=== PATIENT | female | born 1970 | race African-American/Black ===

== ENCOUNTER 2016-07-27 06:35 | Inpatient (IN) ==
[2016-07-26 17:03] LABS: Basophils % 0.3 % (0.0-0.8); Eosinophils # 0.2 10*3/uL (0.0-0.87); Eosinophils % 2.9 % (0.00-10.9); Hematocrit 39.5 VOL% (35.7-47.0); Immature Granulocytes % 0.3 %; Immature Granulocytes Absolute 0.02 #; Lymphocytes # 2.1 10*3/uL (1.4-4.0); Mean Corpuscular HGB Conc 32.9 GM/DL (32-36); Mean Corpuscular Hemoglobin 28 PG (27-34); Mean Corpuscular Volume 85.9 FL (87-102); Mean Platelet Volume 10.5 FL (9.6-12.0); Monocytes # 0.5 10*3/uL (0.11-0.8); Monocytes % 6.8 % (1.7-12.7); Neutrophils # 4.8 10*3/uL (1.4-7.4); Neutrophils % 62.7 % (38.7-73.9); Platelet Count 341 T/CUMM (130-400); White Blood Count 7.7 T/CUMM (4-12)
[2016-07-26 17:30] LABS: Calcium 9.3 MG/DL (8.5-10.1); Potassium 4.2 MMOL/L (3.5-5.1)
[2016-07-27] MEDS ORDERED: DIAZEPAM 5 MG TABLET PO ONE (07:04)
[2016-07-27] MEDS ORDERED: FAMOTIDINE 20 MG TABLET PO ONE (07:04)
[2016-07-27] MEDS ORDERED: ceFAZolin 1,000 MG VIAL ONE (07:10)
[2016-07-27] MEDS ORDERED: DIAZEPAM 5 MG TABLET ONE (07:10)
[2016-07-27] MEDS ORDERED: FAMOTIDINE 20 MG TABLET ONE (07:10)
[2016-07-27] MEDS ORDERED: SODIUM CHLORIDE 0.9% 100 ML IV ONE (07:11)
[2016-07-27] MEDS ORDERED: LACTATED RINGERS 1,000 ML IV SCH (07:30)
--- NOTE | 2016-07-27 08:06 | History and Physical Update ---
History and Physical Update - History and Physical H&P was reviewed, the patient examined and there: are no changes in the patients condition since last H&P was completed.
[2016-07-27] MEDS ORDERED: BUPIVACAINE 0.5% 50 ML VIAL ONE (08:16)
[2016-07-27] MEDS ORDERED: HEPARIN 5,000 UNIT/1 ML VIAL ONE (08:16)
[2016-07-27] MEDS ORDERED: VANCOMYCIN 500 MG VIAL ONE (08:16)
[2016-07-27] MEDS ORDERED: THROMBIN TOPICAL (RECOMBINANT) 5,000 UNIT VIAL TOP ONE (08:16)
[2016-07-27] MEDS ORDERED: GLYCOPYRROLATE 0.4 MG/2 ML VIAL ONE (09:05)
[2016-07-27] MEDS ORDERED: NEOSTIGMINE 10 MG/10 ML VIAL ONE (09:05)
[2016-07-27] MEDS ORDERED: LIDOCAINE 2% 5 ML VIAL ONE (09:05)
[2016-07-27] MEDS ORDERED: HEPARIN 1,000 UNIT/1 ML VIAL ONE (09:05)
[2016-07-27] MEDS ORDERED: PROPOFOL 200 MG/20 ML VIAL IV ONE (09:05)
[2016-07-27] MEDS ORDERED: KETOROLAC 30 MG/1 ML VIAL ONE (09:05)
[2016-07-27] MEDS ORDERED: ROCURONIUM 100 MG/10 ML VIAL IV ONE (09:05)
[2016-07-27] MEDS ORDERED: ONDANSETRON 4 MG/2 ML VIAL ONE (09:05)
[2016-07-27] MEDS ORDERED: ETOMIDATE 20 MG/10 ML VIAL IV ONE (09:05)
[2016-07-27] MEDS ORDERED: TISSUE ADHESIVE 1 EACH APPLICATOR TOP ONE (10:48)
[2016-07-27] MEDS ORDERED: HYDROmorphone 2 MG/1 ML VIAL IV PRN (10:55)
[2016-07-27] MEDS ORDERED: ONDANSETRON 4 MG/2 ML VIAL IV PRN (10:55)
--- NOTE | 2016-07-27 11:05 | Operative Note ---
Date of procedure: 07/27/16 Procedure: Dr. Loco operative report Adela Rodriguez. Surgeon: Mare Anesthesia: Bon of general endotracheal. Preoperative diagnosis occlusion right common femoral artery. Postoperative diagnosis: Occlusion right common femoral artery due to intimal flap. Procedure: Exploration and repair of right common femoral artery with thrombectomy of the right iliac artery.bovine pericardial patch graft. Indications for the procedure: Ms. Rodriguez a 46-year-old woman has an acute occlusion of her right common femoral artery subsequent to cardiac catheterization. I have offered and recommended exploration and repair of explained the alternatives risks and complications which she understands and accepts Description of the procedure: After the induction of general endotracheal anesthesia the patient's lower abdomen groin and thigh are prepped with ChloraPrep and Ioban and draped in the usual fashion I made an incision over the femoral canal and just above the inguinal ligament carried this down into the common into the femoral canal. I dissected the common femoral and external iliac artery free noting the closure device on the anterior surface of the artery. Patient received 5000 units of heparin Vesseloops were used to control the external iliac and the common femoral arteries above its bifurcation. I opened the artery noting that there was a significant dissection of the intima in the common femoral artery causing occlusion in the iliac artery was completely occluded due to thrombus. I trimmed the dissected intima down to an area above the bifurcation of the femoral artery I used 7-0 Prolene to tack the intimal flap down securely under loupe magnification. I then used a 5 Lars catheter and did thrombectomy proximally finding no feeling of disease within the artery and an excellent inflow was also excellent inflow from the backflow from the femoral artery. I used a bovine pericardial patch and 6 5-0 Prolene suture to close the arteriotomy. Flow was restored and Doppler signal was quite good hemostasis was obtained with partial reversal of the heparin was 25 mg of protamine. I then rechecked and second showed continued flow and pulse in the femoral artery distal to the repair. Incision was irrigated Tisseel was used to secure the area around the artery and the incision was closed with 403 0 Monocryl in the subcu 4-0 Monocryl subcuticular and glue on the skin blood loss estimated at 150 cc. Surgeon / Physician: Jatinder Loco Results - Labs CBC & BMP: 07/26/16 16:52 03/27/17 16:52 Discharge Plan - Discharge Medications No Action Aspirin EC Tab 325 mg PO DAILY Amiloride/Hydrochlorothiazide [Amiloride HCl-Hctz 5-50 mg Tab] 1 tablet PO DAILY Spironolactone 25 mg PO DAILY Nitroglycerin [Nitroglycerin SL Tab] 0.4 mg PO DIRECTED DULoxetine [Cymbalta] 30 mg PO DAILY cloNIDine TAB [Catapres Tab] 0.2 mg PO TID Amlodipine/Valsartan [Amlodipine-Valsartan 10-320 mg] 1 tablet PO DAILY - Follow Up or Referral - Forms/Instructions
[2016-07-27] MEDS ORDERED: SEVOFLURANE 1 UNIT/15 MINUTE INH ONE (11:17)
[2016-07-27] MEDS ORDERED: fentaNYL 100 MCG/2 ML VIAL ONE (11:17)
[2016-07-27] MEDS ORDERED: LACTATED RINGERS 1,000 ML IV ONE (11:17)
[2016-07-27] MEDS ORDERED: MIDAZOLAM 2 MG/2 ML VIAL ONE (11:17)
[2016-07-27] MEDS ORDERED: PROTAMINE SULFATE 50 MG/5 ML VIAL IV ONE (11:17)
[2016-07-27] MEDS ORDERED: ACETAMINOPHEN 1,000 MG/100 ML VIAL IV ONE (11:17)
--- NOTE | 2016-07-27 13:09 | Anesthesia ---
Anesthesia Post OP - Post Ansesthetic Evaluation Patient seen in post op: Yes Resp: within normal limits CV: within normal limits Mental: within normal limits Temp: within normal limits [id number]: within normal limits Nausea and Vomiting: within normal limits Pain: within normal limits
--- NOTE | 2016-07-27 15:06 | Cardiology Consult Note ---
Riaz Madden April, RN, am scribing for, and in the presence of, Leopoldo Harris MD 15:05. Assessment and Plan - Time spent with patient Time spent with patient: Greater than 30 minutes (Due to assessment, planning, documentation, and medication review) (1) Claudication Status: Acute Assessment and plan: Patient had occlusion of the right femoral artery now post reestablishment of flow and patch closure femoral arteriotomy site. She is stable and doing currently very well and we will continue following Current Visit: Yes (2) Hypertension Status: Chronic Current Visit: Yes History of Present Illness - Data of Consult Patient: known to practice within the last 3 years Consult date: 07/27/16 Requesting Physician: Jatinder Loco - Consult Narrative Reason for consult: Follow-up postop History of present illness: Ms. Whatley is a 46 year old female who is routinely followed by Dr. Bundy with a history of hypertension and claudication. She has had a heart cath, hysterectomy, and in the past. Family history includes mother with TIA, brother with [place], and brother with cancer. Reports she is a lifetime non- smoker. Left and right heart cath with Dr. Bundy on July 14, 2016 with the following findings: 1. Right-sided pressures and hemodynamics are mildly elevated. 2. Left is normal size and systolic function with ejection fraction of 65 + percent. 3. LVEDP is normal at 16 mmHg. 4. Aortic valve appears to be a tricuspid structure without gradient. 5. Mitral valve is without any significant regurgitation. 6. Right and left coronary artery systems are widely patent without stenosis or other disease. 7. Successful Angio-Seal hemostasis a right common for artery appears to be patent. She Reports office on July 19 complaining of right leg pain for 5 days, the leg pain had increased and she could barely walk. She was evaluated in the emergency department that day. Venous Doppler showed no evidence of deep vein thrombosis. She still born in the office on July 20 and he referred her Dr. Loco. Dr. Garvey saw the patient and brought her in today for exploration and repair of right common femoral artery. We have been asked to see her postop. She is seen resting in bed in no acute distress, oxygen use via nasal biprong. She is still drowsy from surgery, but will awaken easily. is at bedside. She reports that about once a days she has a sharp pain in the center of her chest that is not reproducible, does not radiate, and with no known triggers or alleviators. She states she will have 1 pain and then it will go away. This is similar to the pain she was having before her heart cath, but she states it is not as severe as it was then. She also states she has been having occasional palpitations. Currently she denies any chest pain, shortness of breath, palpitations, or dizziness. She also denies any right leg pain at this time. Her vital signs have been stable with most recent blood pressure 139 /74, O2 sat 99%. This patient is being seen postoperatively. She is stable with minimal soreness and feels better post surgery. She has faint 1+ pulses at the right posterior tibial and 1+ pulses in the dorsalis pedis on the right. She had occlusion of right femoral artery post catheterization which is now been repaired. She has had atypical chest pain as outlined above currently not complaining of pain. I have discussed in detail the particulars of this case and I have examined the patient and reviewed the patient's chart both current and old. I was directly involved in the patient's evaluation and management and I completely agree with Yessi Mello RN regarding this patient's evaluation and treatment plan. CC: Jatinder Loco MD - Home Medications and Allergies Home Medications: Home Medications Medication Instructions Recorded Confirmed Type Aspirin EC Tab 325 mg PO DAILY 08/15/15 07/27/16 History Amiloride/Hydrochlorothiazide 1 tablet PO DAILY 07/14/16 07/27/16 History [Amiloride HCl-Hctz 5-50 mg Tab] Amlodipine/Valsartan 1 tablet PO DAILY 07/14/16 07/27/16 History [Amlodipine-Valsartan 10-320 mg] DULoxetine [Cymbalta] 30 mg PO DAILY 07/14/16 07/27/16 History Nitroglycerin [Nitroglycerin SL 0.4 mg PO DIRECTED 07/14/16 07/27/16 History Tab] Spironolactone 25 mg PO DAILY 07/14/16 07/27/16 History cloNIDine TAB [Catapres Tab] 0.2 mg PO TID 07/14/16 07/27/16 History Allergies/Adverse Reactions: Allergies Allergy/AdvReac Type Severity Reaction Status Date / Time prednisone AdvReac SWELLING Verified 07/27/16 06:45 CLONIDINE PATCH Allergy Mild RASH Uncoded 07/27/16 06:45 - Constitutional Constitutional: Present: as per HPI - EENT Eyes: Present: requires corrective lense. Absent: blurry vision Ears: Absent: decreased hearing, tinnitus Nose, mouth and throat: Absent: epistaxis, headache(s), neck pain - Cardiovascular Cardiovascular: Present: chest pain at rest, palpitations. Absent: chest pain with activity, dyspnea, dyspnea on exertion, edema, radiating jaw, neck or arm pain, lightheadedness, orthopnea - Respiratory Respiratory: Present: wheezing (She states she has wheezing on occasion, but none auscultated at this time). Absent: cough, dyspnea, hemoptysis, dyspnea on exertion - Gastrointestinal Gastrointestinal: Present: nausea. Absent: abdominal pain, constipation, diarrhea, hematemesis, hematochezia, melena, vomiting - Genitourinary Genitourinary: Absent: dysuria, hematuria - Musculoskeletal Musculoskeletal: Absent: back pain, limited range of motion, muscle weakness - Neurological Neurological: Absent: abnormal gait, abnormal speech, confusion, dizziness, frequent falls, headache(s), syncope - Psychiatric Psychiatric: Absent: anxiety, confusion, depression - Endocrine Endocrine: Absent: fatigue - Hematologic/Lymphatic Hematologic/Lymphatic: Absent: easy bleeding, easy bruising Medical,Surgical,& Family Hx - Medical History Cardio: History of: Hypertension Psychological: History of: Anxiety Disorders Respiratory: History of: Bronchitis - Surgical History Cardiac Surgeries: Sugical HX of: Cardiac Catheterization (July 14, 2006) Reproductive Surgeries: Surgical HX of;: Section, Hysterectomy - Family History Family History: Reports;: Family Cancer (Mother- Cervical Cancer, Father- Lung Cancer), Family Heart Disease (Brother with him), Family Hypertension (Mother and Father), Family Stroke (Mother with TIA) - Social History Smoking Status: Never smoker Have you smoked in the last 12 months: No Frequency of Alcohol Use: Occasionally Type of Drug Use: None Marital Status: Lives With:: Spouse Functional capacity: independent ambulation Physical Examination Vital Signs Temp Pulse Resp BP Pulse Ox 97.2 F L 80 20 142/80 98 07/27/16 06:39 07/27/16 06:39 07/27/16 06:39 07/27/16 06:39 07/27/16 06:39 General: Present: Appears Well, No Apparent Distress HEENT: Present: PERRL, Mucus Membranes Moist Neck: Present: Supple Neck, Midline Trachea, No JVD/HJR, No Bruit Cardiac: Present: Reg Rate and Rhythm, No Murmur Lungs: Present: Normal Breath Sounds, Oxygen (Via nasal biprong), No Wheeze, Rales, Rhonchi Neuro: Absent: Essential Tremor Abdomen: Present: Soft, Active Bowel Sounds, Non-Tender. Absent: Distended Skin: Present: Clear Incision: Present: Incision Site (Right groin without evidence of bleeding) Extremities: Present: No Edema, Normal Upper Extr. Pulses, Normal Lower Extr. Pulses Result/EKG - Labs CBC & BMP: 07/26/16 16:52 07/26/16 16:52 Lab Results: I have reviewed the past 24 hour labs Labs: Laboratory Results - last 24 hr 07/26/16 07/26/16 16:52 16:52 WBC 7.7 RBC 4.60 Hgb 13.0 Hct 39.5 MCV 85.9 L MCH 28 MCHC 32.9 RDW 13.0 Plt Count 341 MPV 10.5 Neut % (Auto) 62.7 Lymph % (Auto) 27.0 [place] % (Auto) 6.8 Eos % (Auto) 2.9 Baso % (Auto) 0.3 Neut # (Auto) 4.8 Lymph # (Auto) 2.1 [place] # (Auto) 0.5 Eos # (Auto) 0.2 Baso # (Auto) 0.0 Immature Gran % 0.3 Nucleated RBC % 0.0 Immature Gran # 0.02 Nucleated RBCs # 0.00 Sodium 143 Potassium 4.2 Chloride 107 Carbon Dioxide 27 Anion Gap 13.2 BUN 8 Creatinine 0.70 GFR Calculation 129 BUN/Creatinine Ratio 11.00 Glucose 101 Calculated Osmolality 282.0 Calcium 9.3 Quality Measures - VTE Contraindication to Pharmacological VTE Prophylaxis: Clinical assessment deems Pt at low risk, no prophalaxis needed Steven Madden Wesley, MD, personally performed the services described in this documentation, ascribed by Yessi Mello RN in my presence, and it is both accurate and complete .
--- NOTE | 2016-07-27 16:00 | Event Note ---
Adela Tran is awake alert states her foot feels much better no longer numb she has got a palpable posterior tibial pulse I do not feel the dorsalis pedis but the foot is clearly worn warm groin looks good with no hematoma she had been out of bed yet I will asked that she stay overnight perhaps ambulate and if she is doing well can be discharged in the morning
[2016-07-27] MEDS: LACTATED RINGERS 1,000 ML IV SCH (16:42)
[2016-07-28 05:54] LABS: Hematocrit 34.2 VOL% (35.7-47.0)
[2016-07-28 06:19] LABS: Hemoglobin 10.9 GM/DL (12.0-16.0)
[2016-07-28] MEDS: LACTATED RINGERS 1,000 ML IV SCH (06:25)
[2016-07-28 06:30] LABS: Calcium 8.8 MG/DL (8.5-10.1); Potassium 5.1 MMOL/L (3.5-5.1)
--- NOTE | 2016-07-28 08:27 | Discharge Summary ---
Discharge Plan - Discharge Data Disposition: Disch To Home/Self Care Condition at Discharge: Stable Discharge Diet: advance to your usual diet Activity: resume usual activities as tolerated Hygiene: may shower Weight Bearing at Discharge: full weight bearing Driving: not until seen by doctor Contact your physician if you experience:: fever over 101, Redness or swelling, Bleeding - Discharge Medications New Aspirin Chew Tab 81 mg PO DAILY tablet Clopidogrel [Plavix] 75 mg PO DAILY #30 tablet Valsartan [Diovan] 320 mg PO DAILY #30 tablet oxyCODONE/ACETAMINOPHEN 5-325 [Percocet 5-325] 1 - 2 tablet PO Q6H PRN #30 tablet PRN Reason: Pain Continue Amiloride/Hydrochlorothiazide [Amiloride HCl-Hctz 5-50 mg Tab] 1 tablet PO DAILY Spironolactone 25 mg PO DAILY Nitroglycerin [Nitroglycerin SL Tab] 0.4 mg PO DIRECTED DULoxetine [Cymbalta] 30 mg PO DAILY cloNIDine TAB [Catapres Tab] 0.2 mg PO TID Amlodipine/Valsartan [Amlodipine-Valsartan 10-320 mg] 1 tablet PO DAILY Discontinued Aspirin EC Tab 325 mg PO DAILY - Follow Up or Referral Follow Up: Jatinder Loco MD [Physician] - 1 Week Ángel Bundy MD [Physician] - 2 Weeks - Forms/Instructions Exam - Constitutional Vitals: Period Temp Pulse Resp BP Sys/[place] Pulse Ox Last 24 Hr 97.2 F-99.6 F 53-98 16-99 109-142/54-84 91-100 Discharge Results Labs on day of discharge: Labs from last 24 hours 07/28/16 07/28/16 04:37 04:37 Hgb 10.9 L D Hct 34.2 L Sodium 143 Potassium 5.1 Chloride 106 Carbon Dioxide 29 Anion Gap 13.1 BUN 9 Creatinine 0.70 GFR Calculation 129 BUN/Creatinine Ratio 12.00 Glucose 106 Calculated Osmolality 283.0 Calcium 8.8 DS: Provider Date of admission: 07/27/16 10:55 Primary care physician: Massimo Barnard MD Attending physician on admission: Jatinder Loco MD Consults: 07/27/16 10:59 Consult to Physician [CONS] Routine Comment: patient known to you Consulting Provider: Ángel Bundy Consulting Provider Notified: Yes When should Consulting Provider be notified: Now Consult to Specialist Group: Cardiology When should Consulting Provider be notified: Now Person Notified: BRIAN Date Notified: 07/27/16 Time Notified: 13:35 Discharging clinician: Jatinder Loco MD
[2016-07-28] MEDS ORDERED: SPIRONOLACTONE 25 MG TABLET PO SCH (09:00)
[2016-07-28] MEDS ORDERED: CLOPIDOGREL 75 MG TABLET PO SCH (09:00)
[2016-07-28] MEDS ORDERED: HCTZ PO SCH (09:00)
[2016-07-28] MEDS ORDERED: AMILORIDE PO SCH (09:00)
[2016-07-28] MEDS ORDERED: VALSARTAN 160 MG TABLET PO SCH (09:00)
[2016-07-28] MEDS ORDERED: DULoxetine 30 MG CAPSULE PO SCH (09:00)
[2016-07-28] MEDS ORDERED: ASPIRIN CHEW 81 MG TABLET PO SCH (09:00)
[2016-07-28] MEDS ORDERED: amLODIPine 10 MG TABLET PO SCH (09:00)
[2016-07-28 09:08] VITALS: BP 144/64
== END 2016-07-28 10:25 | disposition home or self-care (01) | DRG 271 ==
LOC: N.4E 06:35 → N.SDSINP 06:35 → N.OR 06:35 → EDSTATUS 08:15 → N.4E 10:55 → UNDODISOB 07-28 10:25
PROVIDERS: ADMIT Surgery; ATTEND Surgery